=== PATIENT | female | born 1970 | race African-American/Black ===

== ENCOUNTER 2016-08-18 16:11 | Emergency (ER) | payer MEDICAID ==
[~2016-08-18] VITALS: Ht 167.6 cm; Wt 53.5 kg
[2016-08-18] MEDS ORDERED: Cyclobenzaprine 10mg Tab ORAL ONE (17:00)
[2016-08-18] MEDS ORDERED: CYCLOBENZAPRINE10 MG ORAL (17:28)
[2016-08-18] MEDS ORDERED: IBUPROFEN600 MG ORAL (17:28)
[2016-08-18 17:39] VITALS: BP 123/87
--- NOTE | 2016-08-18 21:53 | Emergency Room Report ---
History of Present Illness General Chief Complaint: Lower Extremity Injury Source: Patient Present Illness HPI The patient is a 46 year old female presenting with left hip pain which began 2 days prior for no known reason. The patient describes the pain as a 9/10 dull ache to the back of the left hip. Pain radiates inferiorly to the knee. The patient denies any numbness or tingling and denies any prior injury to the hip. The patient denies any other symptoms including nausea, vomiting, fever, chills , Shortness of breath, cough Allergies: Coded Allergies: No Known Allergies (Unverified , 08/18/16) Patient History Past Medical History: see triage record Pertinent Family History: none Last Menstrual Period: AUG 05, 2016 Now: No : 7 Para: 3 Reviewed Nursing Documentation: PMH: Agreed, PSxH: Agreed Nursing Documentation-PMH Hx Hypertension: Yes Review of Systems All Other Systems: negative except mentioned in HPI Physical Exam Vital Signs Date Time Temp Pulse Resp B/P Pulse Ox O2 Delivery O2 Flow Rate FiO2 08/18/16 16:39 98.2 79 14 110/79 99 Room Air Sp02 EP Interpretation: reviewed, normal General Appearance: no apparent distress, alert, GCS 15, non-toxic Head: normocephalic, atraumatic Eyes: bilateral eye PERRL, bilateral eye normal inspection ENT: hearing grossly normal, normal pharynx, no angioedema, normal voice Neck: full range of motion, supple/symm/no masses Musculoskeletal: normal range of motion, no calf tenderness, pelvis stable, other - ambulating with antalgic gait, tender - TTP over posterior L hip/buttock Neurologic: alert, oriented x3, responsive, motor strength/tone normal, sensory intact, speech normal Psychiatric: judgement/insight normal, memory normal, mood/affect normal, no suicidal/homicidal ideation Reflexes: 3+ bicep (R), 3+ bicep (L), 3+ tricep (R), 3+ tricep (L), 3+ knee (R) , 3+ knee (L) Skin: normal color, no rash, warm/dry, well hydrated Lymphatic: no adenopathy Medical Decision Making PA Attestation Dr. Sykes is my supervising physician. Patient management was discussed with my supervising physician Diagnostic Impression: Primary Impression: Hamstring muscle strain ER Course The patient is a 46-year-old female presenting with left hip pain Ddx considered include but not limited to sprain/strain, fracture, contusion, doubt, septic joint Physical exam: Vitals within normal limits. No apparent distress. Left hip: Limited range of motion due to pain. Tenderness to palpation over the left posterior hip and buttock. No obvious deformity. Sensation intact to light-touch. Antalgic gait. Skin warm and dry. No discoloration X-ray of the left hip is unremarkable The patient is given Motrin and Flexeril for pain The patient will be treated for muscular strain with a prescription for Motrin and Flexeril. Patient given ER precautions and will followup with primary care physician Other X-Ray Diagnostic Results Other X-Ray Diagnostic Results : X-Ray Ordered: L hip Date: Aug 18, 2016 EP Interpretation: Yes Findings: no fractures, no dislocation, no soft tissue swelling Number of Views: 2 PA Scribe Text I am acting as scribe for my supervising physician. My supervising physician's interpretation of the L hip xrays are there are no fractures, dislocations or soft tissue swelling. Last Vital Signs Date Time Temp Pulse Resp B/P Pulse Ox O2 Delivery O2 Flow Rate FiO2 08/18/16 17:40 98.3 08/18/16 17:39 76 14 123/87 99 Room Air Status: improved Disposition: HOME, SELF-CARE Condition: Improved Scripts Cyclobenzaprine Hcl* (FLEXERIL*) 10 Mg Tablet 10 MG ORAL THREE TIMES A DAY, #15 TAB Prov: IVONNE LOVE.ACamila 08/18/16 Ibuprofen* (MOTRIN*) 600 Mg Tablet 600 MG ORAL Q8H Y for For Pain, #30 TAB 0 Refills Prov: IVONNE LOVE P.A. 08/18/16 Referrals: [facility] (PCP) Patient Instructions: Hamstring Strain Additional Instructions: I discussed my findings with the patient. All questions and concerns have been answered. Treatment and medication compliance have been addressed. I advised the patient that they need to follow up with PMD in 3-5 days. Return to ED if pain remains or worsens, numbness or tingling occurs, new rash is noticed, fever is noticed, or if needed for any reason. Patient verbalized understanding of discharge instructions. IVONNE LOVE Aug 18, 2016 21:53
--- NOTE | 2016-08-19 12:57 | Diagnostic Imaging Report ---
Indications: Left hip pain Technique: Two views left hip Findings: Comparison: None. No fracture, dislocation, lytic destruction, periosteal reaction, surrounding soft tissue swelling, or other acute changes are demonstrated. Suggestion of degenerative change in lower lumbar spine. Sclerosis on either side of the pubic symphysis. No deformity, alignment abnormality, additional arthritic change, soft tissue calcification, or other chronic changes are demonstrated. IMPRESSION: No evidence of left hip abnormality Suggestion of degenerative spondylosis Osteitis pubis
== END 2016-08-18 17:39 | disposition home or self-care (01) ==
LOC: EMR 16:55
DX: S76.812A Strain of other specified muscles, fascia and tendons at thigh level, left thigh, initial encounter (principal); M86.9 Osteomyelitis, unspecified; I10 Essential (primary) hypertension; X58.XXXA Exposure to other specified factors, initial encounter; Y93.9 Activity, unspecified; Y92.9 Unspecified place or not applicable
CPT/HCPCS: 73502; 99284

== ENCOUNTER 2018-06-21 13:09 | Inpatient (IN) | payer MEDICAID ==
[~2018-06-21] VITALS: Ht 170.2 cm; Wt 52.2 kg
[2018-06-21 13:08] VITALS: BP 155/110
[~2018-06-21 13:09] MED LIST: Albuterol ud Inhalation ONE; CYCLOBENZAPRINE10 MG ORAL; IBUPROFEN600 MG ORAL; Ipratropium 0.02% Inh Soln 2.5ml UD ONE
[2018-06-21] MEDS ORDERED: Albuterol ud Inhalation HHN ONE (13:15)
[2018-06-21] MEDS ORDERED: Solu-MEDROL 125mg Inj IVP ONE (13:15)
[2018-06-21] MEDS ORDERED: Ipratropium 0.02% Inh Soln 2.5ml UD HHN ONE (13:15)
[2018-06-21] MEDS ORDERED: Solu-MEDROL 125mg Inj ONE (13:17)
[2018-06-21] MEDS ORDERED: Albuterol ud Inhalation ONE (13:24)
[2018-06-21] MEDS ORDERED: TAPAZOLE5 M1 PO (13:39)
[2018-06-21] MEDS ORDERED: ALBUTEROL2.5 MG/3 M INH (13:39)
[2018-06-21] MEDS ORDERED: GABAPENTIN100 MG ORAL (13:39)
[2018-06-21] MEDS ORDERED: AMLODIPINE BESYL5 MG ORAL (13:39)
[2018-06-21 13:52] LABS: APPEARANCE,URINE CLOUDY; BILIRUBIN, URINE NEGATIVE (NEGATIVE); GLUCOSE, URINE (UA) NEGATIVE (NEGATIVE); KETONES,URINE NEGATIVE (NEGATIVE); LEUKOCYTE ESTERASE ,URINE NEGATIVE (NEGATIVE); NITRITE,URINE NEGATIVE (NEGATIVE); PH,URINE 6 (4.5-8.0); PROTEIN,URINE 3+ (NEGATIVE); UROBILINOGEN,URINE 1 MG/DL (0.0-1.0)
[2018-06-21 13:54] LABS: COLOR,URINE YELLOW
[2018-06-21 13:57] LABS: BASOPHILS % (AUTO) 1.8 % (0.0-2.0); EOSINOPHILS % (AUTO) 10.5 % (0.0-3.0); HEMATOCRIT 45.4 % (37.0-47.0); HEMOGLOBIN 15.4 G/DL (12.0-16.0); LYMPHOCYTES % (AUTO) 47.3 % (20.0-45.0); MEAN CORPUSCULAR VOLUME 91 FL (80-99); MONOCYTES % (AUTO) 8.7 % (1.0-10.0); NEUTROPHILS % (AUTO) 31.7 % (45.0-75.0); PLATELET COUNT 224 K/UL (150-450); RED CELL DISTRIBUTION WIDTH 12.9 % (11.6-14.8); WHITE BLOOD COUNT 6.9 K/UL (4.8-10.8)
[2018-06-21 14:06] LABS: ANION GAP 9 mmol/L (5-15); BLOOD UREA NITROGEN 13 mg/dL (7-18); CALCIUM 8.6 MG/DL (8.5-10.1); CARBON DIOXIDE 28 MMOL/L (21-32); CHLORIDE 108 MMOL/L (98-107); CREATININE 0.9 MG/DL (0.55-1.30); POTASSIUM 3.5 MMOL/L (3.5-5.1); SODIUM 145 MMOL/L (136-145)
[2018-06-21 14:11] LABS: ALANINE AMINOTRANSFERASE 23 U/L (12-78); ALBUMIN 3.6 G/DL (3.4-5.0); ALBUMIN/GLOBULIN RATIO 0.9 (1.0-2.7); ALKALINE PHOSPHATASE 89 U/L (46-116); ASPARTATE AMINO TRANSFERASE 20 U/L (15-37); BILIRUBIN,TOTAL 0.6 MG/DL (0.2-1.0)
[2018-06-21 14:23] VITALS: BP 127/92
--- NOTE | 2018-06-21 14:40 | Diagnostic Imaging Report ---
Indication: Shortness of breath, cough Technique: One view of the chest Comparison: none Findings: Lungs and pleural spaces are clear. Heart size is normal Impression: No acute process
[2018-06-21 15:25] VITALS: BP 143/93
--- NOTE | 2018-06-21 15:49 | Emergency Room Report ---
History of Present Illness General Chief Complaint: Dyspnea/Respdistress Source: Patient, EMS Present Illness HPI This patient is brought in with respiratory distress. The patient is brought in by EMS. Per report, the patient has had shortness of breath starting this morning about an hour prior to arrival. The patient has a history of COPD. EMS reports that pulse ox was in the high 80s on their arrival. They did give albuterol and place the patient on oxygen and her SPO2 increased to the mid- 90s. However, the patient remained tachypneic and having dyspnea. The patient states she cannot breathe. She denies recent illness. She denies fever or chills. She has no other complaints. Allergies: Coded Allergies: No Known Allergies (Unverified , 08/18/16) Patient History Past Medical History: see triage record, HTN, asthma, COPD Social History: Reports: smoking, drug use; Denies: alcohol use Last Menstrual Period: na Reviewed Nursing Documentation: PMH: Agreed; PSxH: Agreed Nursing Documentation-PMH Past Medical History: No History, Except For Hx Hypertension: Yes Hx Asthma: Yes Review of Systems All Other Systems: negative except mentioned in HPI Physical Exam Vital Signs Date Time Temp Pulse Resp B/P (MAP) Pulse Ox O2 Delivery O2 Flow Rate FiO2 06/21/18 12:53 118 28 155/110 90 Simple Mask 10.0 06/21/18 13:00 40 06/21/18 13:08 98.4 Sp02 EP Interpretation: reviewed, normal General Appearance: alert, GCS 15, non-toxic, moderate distress, other - tachypnea, tripoding. Head: normocephalic, atraumatic Eyes: bilateral eye normal inspection, bilateral eye PERRL ENT: hearing grossly normal, normal pharynx, no angioedema, normal voice Neck: full range of motion, supple/symm/no masses Respiratory: chest non-tender, respiratory distress, wheezing, expiration Cardiovascular #1: no edema, tachycardia Gastrointestinal: normal bowel sounds, non tender, soft, non-distended, no guarding, no rebound Rectal: deferred Musculoskeletal: back normal, gait/station normal, normal range of motion, non- tender Neurologic: alert, oriented x3, responsive, motor strength/tone normal, sensory intact, speech normal Psychiatric: judgement/insight normal, memory normal, mood/affect normal, no suicidal/homicidal ideation Skin: normal color, no rash, warm/dry, well hydrated Medical Decision Making Diagnostic Impression: Primary Impression: COPD exacerbation ER Course Patient presented in respiratory distress. She was tachypneic and tripoding with low oxygen saturations. She was given emergency albuterol, Atrovent and Solu-Medrol IV. She was placed on oxygen and a monitor. She continued to have tachypnea dyspnea and respiratory distress, so she was placed on BiPAP. During the patient's ED course she had improvement in her work of breathing and dyspnea. Her lung exam improved significantly and she was able to be titrated off the BiPAP to nasal cannula. At the time of admission, the patient was comfortable with a clear lung exam and on 2 L of nasal cannula satting 97%. Patient had a significant turnaround and was eating a meal. I felt she should still be admitted given the severity of her presentation. She is admitted to telemetry floor. This patient is critically ill. This patient required complex medical decision- making, aggressive intervention, extensive laboratory workup and monitoring. Critical care time: 40 minutes. Laboratory Tests Test 06/21/18 13:15 White Blood Count 6.9 K/UL (4.8-10.8) Red Blood Count 5.00 M/UL (4.20-5.40) Hemoglobin 15.4 G/DL (12.0-16.0) Hematocrit 45.4 % (37.0-47.0) Mean Corpuscular Volume 91 FL (80-99) Mean Corpuscular Hemoglobin 30.9 PG (27.0-31.0) Mean Corpuscular Hemoglobin Concent 34.0 G/DL (32.0-36.0) Red Cell Distribution Width 12.9 % (11.6-14.8) Platelet Count 224 K/UL (150-450) Mean Platelet Volume 5.7 FL (6.5-10.1) L Neutrophils (%) (Auto) 31.7 % (45.0-75.0) L Lymphocytes (%) (Auto) 47.3 % (20.0-45.0) H Monocytes (%) (Auto) 8.7 % (1.0-10.0) Eosinophils (%) (Auto) 10.5 % (0.0-3.0) H Basophils (%) (Auto) 1.8 % (0.0-2.0) Urine Color Yellow Urine Appearance Cloudy Urine pH 6 (4.5-8.0) Urine Specific [place] 1.020 (1.005-1.035) Urine Protein 3+ (NEGATIVE) H Urine Glucose (UA) Negative (NEGATIVE) Urine Ketones Negative (NEGATIVE) Urine Blood 1+ (NEGATIVE) H Urine Nitrite Negative (NEGATIVE) Urine Bilirubin Negative (NEGATIVE) Urine Urobilinogen 1 MG/DL (0.0-1.0) H Urine Leukocyte Esterase Negative (NEGATIVE) Urine RBC 2-4 /HPF (0 - 2) H Urine WBC 0-2 /HPF (0 - 2) Urine Squamous Epithelial Cells Moderate /LPF (NONE/OCC) H Urine Bacteria Few /HPF (NONE) Sodium Level 145 MMOL/L (136-145) Potassium Level 3.5 MMOL/L (3.5-5.1) Chloride Level 108 MMOL/L (98-107) H Carbon Dioxide Level 28 MMOL/L (21-32) Anion Gap 9 mmol/L (5-15) Blood Urea Nitrogen 13 mg/dL (7-18) Creatinine 0.9 MG/DL (0.55-1.30) Estimate Glomerular Filtration Rate > 60 mL/min (>60) Glucose Level 122 MG/DL (74-106) H Calcium Level 8.6 MG/DL (8.5-10.1) Total Bilirubin 0.6 MG/DL (0.2-1.0) Aspartate Amino Transferase (AST) 20 U/L (15-37) Alanine Aminotransferase (ALT) 23 U/L (12-78) Alkaline Phosphatase 89 U/L (46-116) Troponin I 0.017 ng/mL (0.000-0.056) Total Protein 7.8 G/DL (6.4-8.2) Albumin 3.6 G/DL (3.4-5.0) Globulin 4.2 g/dL Albumin/Globulin Ratio 0.9 (1.0-2.7) L Microbiology Date/Time Source Procedure Growth Status 06/21/18 13:45 Nasal Nares Influenza Types A,B Antigen (RENATO) - Final Complete EKG Diagnostic Results Rate: tachycardiac Rhythm: other - s.tachycardia ST Segments: no acute changes Rhythm Strip Diag. Results EP Interpretation: yes Rate: 110's Rhythm: no PVC's, no ectopy, other - S.tachycardia Chest X-Ray Diagnostic Results Chest X-Ray Diagnostic Results : Chest X-Ray Ordered: Yes # of Views/Limited/Complete: 1 View Indication: Shortness of Breath EP Interpretation: No Interpretation: no consolidation, no effusion, no pneumothorax, no acute cardiopulmonary disease Impression: No acute disease Electronically Signed by: Vicky Sykes DO Last Vital Signs Date Time Temp Pulse Resp B/P (MAP) Pulse Ox O2 Delivery O2 Flow Rate FiO2 06/21/18 15:25 98.4 107 18 143/93 100 Nasal Cannula 2.0 06/21/18 13:00 40 Disposition: ADMITTED INPATIENT Condition: Serious Referrals: [facility] (PCP) Vicky Sykes DO Jun 21, 2018 15:49
[2018-06-21 17:13] VITALS: BP 134/98
[2018-06-21] MEDS ORDERED: METHIMAZOLE10 MG PO (17:49)
[2018-06-21] MEDS ORDERED: ATROVENT HFA12.9 GM IH (17:49)
[2018-06-21] MEDS: Albuterol/Ipratropium 3ml neb HHN SCH (21:36)
[2018-06-21 21:37] VITALS: BP 151/110
[2018-06-21] MEDS: Solu-MEDROL 40mg Inj IVP SCH (22:23)
[2018-06-21] MEDS ORDERED: Zolpidem 5mg tab ORAL PRN (23:15)
[2018-06-21] MEDS ORDERED: HydrALAZINE 25mg tab ORAL PRN (23:15)
[2018-06-21 23:18] VITALS: BP 147/94
[2018-06-21] MEDS ORDERED: Azithromycin 250mg tab ORAL SCH (23:30)
--- NOTE | 2018-06-22 00:30 | History and Physical Report ---
DATE OF ADMISSION: 06/21/2018 REASON FOR ADMISSION: Chronic obstructive pulmonary disease with acute exacerbation. HISTORY OF PRESENT ILLNESS: This is a 48-year-old female with a known history of chronic bronchitis and chronic obstructive pulmonary disease for which she was last hospitalized in 05/2018. She has never been intubated. She has been on oral steroids periodically. She has been a smoker, but quit over two months ago. The patient notes that she developed shortness of breath this morning, increasing cough and congestion over the past few days, and inadequate response to her usual nebulizer therapy. She was hypoxic in the emergency room and improved with treatment of an inhaled bronchodilator an oxygen supplementation. She felt that she was short of breath however and remains somewhat tachypneic prompting hospitalization. She has not had fever, chills, or sputum production with her cough and she did receive an influenza vaccination this year. SOCIAL HISTORY: She uses marijuana periodically. She quit smoking two months ago. She denies any drug use or alcohol abuse. ALLERGIES: None. MEDICATIONS: Reviewed and reconciled. Presently not on steroids. FAMILY HISTORY: Noncontributory. PAST MEDICAL HISTORY: Otherwise notable for hypertension. REVIEW OF SYSTEMS: A 10-point review of systems performed. All systems negative other than noted above. PHYSICAL EXAMINATION: VITAL SIGNS: In the emergency room, the patient was noted to have a blood pressure of 143/93, heart rate 107, respiratory rate 18, and was afebrile. 100% oxygen saturation on two liters nasal cannula. HEENT: Conjunctivae pink. Oropharynx clear. Mucous membranes moist. NECK: Supple. Some accessory muscle use. No bruits. LUNGS: With coarse breath sounds, rhonchi, and few expiratory wheezes. CARDIAC: Regular rhythm. Rapid rate. Normal S1, S2 with no murmur, rub, or gallop. ABDOMEN: Soft, nontender. No bruits. EXTREMITIES: Good pulses. No clubbing or cyanosis. No calf tenderness. No edema. LABORATORY AND DIAGNOSTIC DATA: Chest x-ray revealed no acute process. White count 6.9, hemoglobin 15. Chemistry panel within normal limits. Glucose 122. Troponin negative. IMPRESSION: 1. Acute bronchitis. 2. Paroxysmal bronchospasm. 3. Chronic obstructive pulmonary disease with acute exacerbation. 4. Hypoxia. 5. Hypertensive heart disease with labile blood pressure due to acute respiratory condition. PLAN: 1. Intravenous steroids. 2. Inhaled bronchodilators. 3. Empiric antimicrobials. 4. Titrate antihypertensives. 5. Mobilize to avoid DVT risk. 6. Encourage continued efforts to avoid resumption of smoking. Rayray Pat M.D. DR: JONO JOB#: [id number] CC:
[2018-06-22] MEDS: Albuterol/Ipratropium 3ml neb HHN SCH ×5 (01:18→20:40)
[2018-06-22 04:00] VITALS: BP 147/97
[2018-06-22 04:55] LABS: HEMATOCRIT 38.9 % (37.0-47.0); HEMOGLOBIN 13.1 G/DL (12.0-16.0); MEAN CORPUSCULAR VOLUME 92 FL (80-99); PLATELET COUNT 228 K/UL (150-450); RED BLOOD COUNT 4.24 M/UL (4.20-5.40); RED CELL DISTRIBUTION WIDTH 13.3 % (11.6-14.8); WHITE BLOOD COUNT 6.9 K/UL (4.8-10.8)
[2018-06-22 05:25] LABS: ANION GAP 10 mmol/L (5-15); BLOOD UREA NITROGEN 18 mg/dL (7-18); CALCIUM 8.9 MG/DL (8.5-10.1); CARBON DIOXIDE 23 MMOL/L (21-32); CHLORIDE 105 MMOL/L (98-107); CREATININE 0.9 MG/DL (0.55-1.30); POTASSIUM 3.8 MMOL/L (3.5-5.1); SODIUM 138 MMOL/L (136-145)
[2018-06-22 05:39] LABS: ALANINE AMINOTRANSFERASE 22 U/L (12-78); ALBUMIN 3.2 G/DL (3.4-5.0); ALBUMIN/GLOBULIN RATIO 0.8 (1.0-2.7); ALKALINE PHOSPHATASE 71 U/L (46-116); ASPARTATE AMINO TRANSFERASE 20 U/L (15-37); BILIRUBIN,TOTAL 0.4 MG/DL (0.2-1.0)
[2018-06-22] MEDS: Solu-MEDROL 40mg Inj IVP SCH ×3 (05:53→21:12)
[2018-06-22 08:00] VITALS: BP 113/94
[2018-06-22 12:00] VITALS: BP 140/87
[2018-06-22 14:43] VITALS: BP 146/108
--- NOTE | 2018-06-22 16:02 | Cardiology Report ---
APPROVED REPORT EKG Measurement Heart [id number] ME [id number] Sinus tachycardia Possible Left atrial enlargement Nonspecific ST and T wave abnormality Abnormal ECG
[2018-06-22 16:18] VITALS: BP 155/118
--- NOTE | 2018-06-22 17:15 | Consultation ---
DATE OF CONSULTATION: 06/22/2018 HISTORY OF PRESENT ILLNESS: This is a 48-year-old female with a history of COPD. She states she was diagnosed a few years ago. She states she normally gets her care at [facility]. The patient has been complaining of shortness of breath. This worsened over the last few days. She reported cough and congestion. She denied fever. She was seen and worked up in the emergency room. She underwent imaging studies. X-ray of the chest was obtained, which showed clear bilaterally. The patient also had laboratory testing done which showed normal CBC and BMP. Glucose is 133. The patient was admitted to the hospital for further management and care. PAST HISTORY: 1. Chronic tobacco use, quit recently. 2. COPD. MEDICATIONS: Home medications including medications at this point in time include Norvasc, Pepcid, erythromycin, Ambien, hydralazine, Solu-Medrol, Neurontin, and albuterol. ALLERGIES: None reported. SURGERIES: None reported. PHYSICAL EXAMINATION: GENERAL: Reveals a 48-year-old female. VITAL SIGNS: O2 saturation 99% on 2 L of oxygen, heart rate 84, respiratory rate 26, afebrile, blood pressure 113/94. HEENT: Unremarkable. CHEST: Clear breath sounds bilaterally. HEART: Normal heart sounds. ABDOMEN: Soft. NEUROLOGIC: Nonfocal. IMPRESSION: 1. Exacerbation of COPD 2. Ex-smoker. 3. Marijuana use. 4. . DISCUSSION: 1. Agree with admission and care. Presently, she is doing well with Solu-Medrol, antibiotics, HHN, and oxygen. 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 No further recommendations at this point and time. Calvin Ignacio M.D. DR: Luis Eduardo JOB#: [id number] CC:
[2018-06-22] MEDS ORDERED: HydrALAZINE 25mg tab ORAL PRN (18:00)
[2018-06-22 20:00] VITALS: BP 142/95
[2018-06-22] MEDS ORDERED: Zolpidem 5mg tab ORAL PRN (20:00)
[2018-06-22] MEDS ORDERED: Azithromycin 250mg tab ORAL SCH (21:00)
[2018-06-23] VITALS: BP 149/102
--- NOTE | 2018-06-23 01:15 | Progress Note ---
INTERNAL MEDICINE PROGRESS NOTE DATE: 06/22/2018 SUBJECTIVE: The patient is still congested and short of breath, but somewhat improved from admission last night. She still has some sputum production and cough with wheezing. OBJECTIVE: VITAL SIGNS: Blood pressure 147/95, pulse 88, and respirations 19. LUNGS: Diminished breath sounds. Scattered expiratory wheezes. HEART: Regular rhythm and rate. Normal S1, S2. Positive fourth heart sound. ABDOMEN: Soft. EXTREMITIES: No edema. IMPRESSION: 1. Chronic obstructive pulmonary disease exacerbation. 2. Acute bronchospasm. 3. Acute bronchitis. 4. Hypertensive heart disease with labile blood pressure. PLAN: 1. Empiric antibiotics. 2. Inhaled bronchodilators. 3. Discontinue telemetry. 4. Steroid taper. 5. Advance antihypertensives. 6. Monitor volume status. 7. DVT prophylaxis if not mobilizing adequately. Rayray Pat M.D. DR: MABLE JOB#: [id number] CC:
[2018-06-23] MEDS: Albuterol/Ipratropium 3ml neb HHN SCH ×4 (01:51→19:12)
[2018-06-23 04:00] VITALS: BP 145/92
[2018-06-23 08:00] VITALS: BP 134/93
[2018-06-23] MEDS: Solu-MEDROL 40mg Inj IVP SCH ×2 (09:27→21:17)
--- NOTE | 2018-06-23 09:35 | Pulmonology Progress Note ---
Assessment/Plan Assessment/Plan IMPRESSION: 1. Exacerbation of COPD 2. Ex-smoker. 3. Marijuana use. DISCUSSION: Agree with admission and care. Presently, she is doing well with Solu-Medrol, antibiotics, HHN, and oxygen. 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 No further recommendations at this point and time. Suggest DC planning on PO steroids and abx Subjective Interval Events: None new Constitutional: Reports: no symptoms HEENT: Repors: no symptoms Respiratory: Reports: no symptoms Cardiovascular: Reports: no symptoms Gastrointestinal/Abdominal: Reports: no symptoms Genitourinary: Reports: no symptoms Allergies: Coded Allergies: No Known Allergies (Unverified , 08/18/16) Objective Last 24 Hour Vital Signs Date Time Temp Pulse Resp B/P (MAP) Pulse Ox O2 Delivery O2 Flow Rate FiO2 06/23/18 09:26 80 134/93 06/23/18 08:29 79 18 98 Nasal Cannula 2.0 28 06/23/18 08:21 77 18 95 Room Air 21 06/23/18 08:21 95 Nasal Cannula 2.0 28 06/23/18 08:21 Nasal Cannula 2.0 28 06/23/18 04:00 98.7 68 19 145/92 (109) 99 06/23/18 02:02 76 18 98 Nasal Cannula 2.0 28 06/23/18 01:51 97 20 97 Room Air 21 06/23/18 00:00 98.7 70 19 149/102 (118) 99 06/22/18 21:00 Room Air 06/22/18 20:51 77 18 98 Nasal Cannula 2.0 28 06/22/18 20:41 88 20 96 Room Air 21 06/22/18 20:41 96 Room Air 21 06/22/18 20:41 Room Air 21 06/22/18 20:00 98.7 88 19 142/95 (111) 99 06/22/18 16:18 98.7 98 19 155/118 (130) 99 06/22/18 15:07 89 20 99 Nasal Cannula 2.0 28 06/22/18 14:57 88 20 97 Nasal Cannula 2.0 28 06/22/18 14:43 96.3 92 20 146/108 (121) 94 06/22/18 12:00 98.1 84 21 140/87 (104) 98 06/22/18 12:00 73 Intake and Output 06/22/18 06/23/18 18:59 06:59 Intake Total 740 ml 120 ml Balance 740 ml 120 ml Intake Oral 740 ml 120 ml # Voids 5 General Appearance: no acute distress HEENT: normocephalic Respiratory/Chest: chest wall non-tender, lungs clear Cardiovascular: normal peripheral pulses, normal rate Abdomen: normal bowel sounds Microbiology Date/Time Source Procedure Growth Status 06/21/18 13:15 Blood Blood Culture - Preliminary Resulted 06/21/18 13:15 Blood Blood Culture - Preliminary Resulted 06/21/18 13:45 Nasal Nares Influenza Types A,B Antigen (RENATO) - Final Complete Current Medications Medications (Trade) Dose Ordered Sig/Magali Route PRN Reason Start Time Stop Time Status Last Admin Dose Admin Acetaminophen (Tylenol) 650 mg Q6H PRN ORAL Mild Pain/Temp > 100.5 06/22/18 14:00 07/21/18 13:59 Albuterol/ Ipratropium (Albuterol/ Ipratropium) 3 ml Q6HRT HHN 06/22/18 14:00 06/26/18 13:59 06/23/18 08:22 Amlodipine Besylate (Norvasc) 10 mg DAILY ORAL 06/23/18 09:00 07/23/18 08:59 06/23/18 09:26 Azithromycin (Zithromax) 500 mg QHS ORAL 06/22/18 21:00 06/28/18 23:29 06/22/18 21:12 Famotidine (Pepcid) 20 mg DAILY ORAL 06/23/18 09:00 07/22/18 08:59 06/23/18 09:27 Gabapentin (Neurontin) 100 mg EVERY 8 HOURS ORAL 06/22/18 14:00 07/21/18 21:59 06/23/18 05:48 Hydralazine HCl (Apresoline) 25 mg Q6H PRN ORAL BP above 160/95 06/22/18 18:00 07/22/18 17:59 Methylprednisolone Sodium Succinate (Solu-MEDROL) 40 mg EVERY 12 HOURS IVP 06/23/18 09:00 07/23/18 08:59 06/23/18 09:27 Zolpidem Tartrate (Ambien) 5 mg HSPRN PRN ORAL Insomnia 06/22/18 20:00 06/28/18 19:59 Calvin Ignacio MD Jun 23, 2018 09:35
[2018-06-23 12:00] VITALS: BP 148/100
[2018-06-23] MEDS ORDERED: Vancomycin 1250mg/D5W 250ml IVPB SCH (12:00)
[2018-06-23 16:00] VITALS: BP 143/95
--- NOTE | 2018-06-23 18:30 | Consultation ---
DATE OF CONSULTATION: 06/23/2018 INFECTIOUS DISEASES CONSULTATION CONSULTING PHYSICIAN: Edith Black M.D. REFERRING PHYSICIAN: Rayray Pat M.D. REASON FOR CONSULTATION: Sepsis. HISTORY OF PRESENTING ILLNESS: This is a 48-year-old lady with history of COPD, chronic bronchitis, asthma, hypertension, hyperthyroidism, who came in with increasing shortness of breath along with cough and congestion. She was hypoxic in the emergency room. She was found to have bacteremia and an Infectious Diseases consultation has been obtained for antibiotics. PAST MEDICAL HISTORY: 1. History of hypertension. 2. COPD. 3. Bronchitis. 4. Asthma. 5. Hyperthyroidism. SOCIAL HISTORY: She used to be a smoker. She quit smoking. She has smoked 2 cigars recently. She drinks alcohol. She smokes marijuana. FAMILY HISTORY: Positive for prostate cancer, colon cancer, and throat cancer in her grandfather. REVIEW OF SYSTEMS: GENERAL: No fever or chills. RESPIRATORY: She did have cough. She has shortness of breath. No chest pain. CARDIAC: No chest pain. No palpitations. No dizziness. No syncope. GASTROINTESTINAL: No nausea. No vomiting. No abdominal pain or diarrhea. MEDICATIONS: As an inpatient, she is on vancomycin, famotidine, amlodipine, Solu-Medrol, azithromycin, Ambien, hydralazine, Tylenol, albuterol, ipratropium, gabapentin. ALLERGIES: No known drug allergies. PHYSICAL EXAMINATION: VITAL SIGNS: Temperature of 97.2, T-max of 98.7 degrees, pulse of 80, respiratory rate of 18, blood pressure 134/93, O2 saturation of 98%. HEENT: Pupils equally reactive to light and accommodation. Mouth appears clean without thrush. NECK: Supple. No adenopathy. No JVD. CARDIOVASCULAR: Regular rate and rhythm. No murmurs. LUNGS: Clear to auscultation bilaterally. No crackles. No wheezes. ABDOMEN: Soft and nontender. No organomegaly. EXTREMITIES: No cyanosis, no clubbing, no edema. LABORATORY AND DIAGNOSTIC DATA: White count 6.9, hemoglobin 13.1, hematocrit 38.9, MCV 92, platelet count of 228. Sodium 138, potassium 3.8, chloride 105, bicarb 23, BUN 18, creatinine 0.9, glucose 133, calcium 8.9, total bilirubin 0.4. AST 20, ALT 22, alkaline phosphatase 71. Beta-natriuretic peptide 346. Total protein 7.1. Albumin 3.2. UA is showing 0 to 2 white cells. Blood cultures showing gram-positive cocci in clusters. On 06/21/2018, nasal swab was negative for influenza A and B. Chest x-ray is showing no acute process. ASSESSMENT: This is a 48-year-old lady with history of hypertension, COPD, asthma, hyperthyroidism, who comes in with cough and shortness of breath and is found to have: 1. Gram-positive sepsis. 2. Asthma exacerbation. 3. COPD. 4. Hypertension. PLAN: 1. Continue IV vancomycin. 2. Continue azithromycin for now. 3. We will follow up cultures and adjust antibiotics accordingly. I would like to thank Dr. Pat for this consultation. Edith Black M.D. DR: SANJAY JOB#: [id number] CC: Rayray Pat M.D.
[2018-06-23] MEDS ORDERED: Bisacodyl EC 5mg tab ORAL PRN (18:45)
[2018-06-23] MEDS ORDERED: Milk of Magnesia 30ml Ud ORAL SCH (20:00)
[2018-06-23] MEDS ORDERED: Lactobacillus-GG tablet ORAL SCH (20:00)
[2018-06-23] MEDS ORDERED: Docusate 250mg cap ORAL SCH (20:00)
[2018-06-23 20:22] VITALS: BP 132/92
[2018-06-23] MEDS ORDERED: Milk of Magnesia 30ml Ud ORAL PRN (21:00)
[2018-06-24 00:35] VITALS: BP 133/89
--- NOTE | 2018-06-24 00:45 | Progress Note ---
DATE: 06/23/2018 INTERNAL MEDICINE PROGRESS NOTE SUBJECTIVE: The patient had positive blood cultures for Gram-positive cocci. The patient has no fevers or chills. Her breathing has improved. OBJECTIVE: VITAL SIGNS: Blood pressure 143/95, pulse 82, and respiratory rate 20. LUNGS: Coarse breath sounds. Rhonchi. No wheezing. HEART: Regular rhythm and rate. Normal S1, S2. ABDOMEN: Soft. EXTREMITIES: No edema. LABORATORY DATA: No new labs today. IMPRESSION: 1. Chronic obstructive pulmonary disease exacerbation, improved. 2. Possible Gram-positive bacteremia and sepsis, unclear source. 3. Paroxysmal bronchospasm. 4. Hypertension with elevated blood pressure due to steroids. PLAN: 1. Vancomycin has been added. 2. Infectious Disease consultation is pending. 3. Repeat blood cultures. 4. An echocardiogram has been ordered. Rayray Pat M.D. DR: JONO JOB#: [id number] CC:
[2018-06-24] MEDS: Albuterol/Ipratropium 3ml neb HHN SCH ×4 (01:17→20:06)
[2018-06-24] MEDS: Azithromycin 500 MG in D5W 275 ML IV SCH (01:17)
[2018-06-24 04:49] VITALS: BP 122/86
[2018-06-24 06:36] LABS: HEMATOCRIT 40.8 % (37.0-47.0); HEMOGLOBIN 13.7 G/DL (12.0-16.0); MEAN CORPUSCULAR VOLUME 95 FL (80-99); PLATELET COUNT 246 K/UL (150-450); RED BLOOD COUNT 4.29 M/UL (4.20-5.40); RED CELL DISTRIBUTION WIDTH 13.8 % (11.6-14.8)
[2018-06-24 07:17] LABS: ALANINE AMINOTRANSFERASE 36 U/L (12-78); ALBUMIN 3.3 G/DL (3.4-5.0); ALBUMIN/GLOBULIN RATIO 0.8 (1.0-2.7); ALKALINE PHOSPHATASE 71 U/L (46-116); ANION GAP 7 mmol/L (5-15); ASPARTATE AMINO TRANSFERASE 22 U/L (15-37); BILIRUBIN,TOTAL 0.3 MG/DL (0.2-1.0); BLOOD UREA NITROGEN 13 mg/dL (7-18); CALCIUM 8.9 MG/DL (8.5-10.1); CARBON DIOXIDE 28 MMOL/L (21-32); CHLORIDE 104 MMOL/L (98-107); CREATININE 0.6 MG/DL (0.55-1.30); POTASSIUM 4.4 MMOL/L (3.5-5.1); SODIUM 139 MMOL/L (136-145)
[2018-06-24] MEDS: Docusate 250mg cap ORAL SCH (08:16)
[2018-06-24] MEDS: Solu-MEDROL 40mg Inj IVP SCH ×2 (08:17→21:47)
[2018-06-24] MEDS: Lactobacillus-GG tablet ORAL SCH ×3 (08:17→17:18)
[2018-06-24 08:30] VITALS: BP 125/86
--- NOTE | 2018-06-24 10:25 | Pulmonology Progress Note ---
Assessment/Plan Assessment/Plan IMPRESSION: 1. Exacerbation of COPD 2. Ex-smoker. 3. Marijuana use. 4. Bacteremia DISCUSSION: Respiratory status stable. 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 No further recommendations at this point and time. Subjective Interval Events: Noted to be bacteremic; breathing comfortably Constitutional: Reports: no symptoms HEENT: Repors: no symptoms Respiratory: Reports: no symptoms Cardiovascular: Reports: no symptoms Gastrointestinal/Abdominal: Reports: no symptoms Genitourinary: Reports: no symptoms Neurologic: Reports: no symptoms Allergies: Coded Allergies: No Known Allergies (Unverified , 08/18/16) Objective Last 24 Hour Vital Signs Date Time Temp Pulse Resp B/P (MAP) Pulse Ox O2 Delivery O2 Flow Rate FiO2 06/24/18 08:17 78 130/79 06/24/18 07:18 86 16 100 Nasal Cannula 2.0 28 06/24/18 07:06 Nasal Cannula 2.0 28 06/24/18 07:06 83 20 95 Nasal Cannula 2.0 28 06/24/18 07:06 95 Nasal Cannula 2.0 28 06/24/18 04:49 97.6 74 18 122/86 (98) 97 06/24/18 01:28 64 12 100 Nasal Cannula 2.0 28 06/24/18 01:17 71 12 96 Nasal Cannula 2.0 28 06/24/18 01:17 28 06/24/18 00:35 97.7 67 18 133/89 (104) 96 06/23/18 22:23 Nasal Cannula 2.0 06/23/18 20:22 97.8 72 18 132/92 (105) 99 06/23/18 19:22 78 16 99 Nasal Cannula 2.0 28 06/23/18 19:12 96 Nasal Cannula 2.0 28 06/23/18 19:12 Nasal Cannula 2.0 28 06/23/18 19:12 28 06/23/18 19:12 74 16 96 Nasal Cannula 2.0 28 06/23/18 16:00 97.7 92 20 143/95 (111) 98 06/23/18 14:18 71 18 98 Nasal Cannula 2.0 28 06/23/18 14:08 72 16 96 Nasal Cannula 2.0 28 06/23/18 12:00 97.5 75 20 148/100 (116) 99 Intake and Output 06/23/18 06/24/18 19:00 07:00 Intake Total 1250.000 ml 755 ml Balance 1250.000 ml 755 ml Intake Oral 1000 ml 480 ml IV Total 250.000 ml 275 ml # Voids 5 5 General Appearance: no acute distress HEENT: normocephalic Respiratory/Chest: chest wall non-tender, lungs clear Cardiovascular: normal peripheral pulses, normal rate Abdomen: normal bowel sounds Microbiology Date/Time Source Procedure Growth Status 06/21/18 13:15 Blood Blood Culture - Preliminary Staphylococcus Aureus Resulted 06/21/18 13:15 Blood Blood Culture - Preliminary Staphylococcus Aureus Resulted 06/21/18 23:30 Nasal Nares MRSA Culture - Final NO METHICILLIN RESISTANT STAPH AUREUS... Complete 06/21/18 13:45 Nasal Nares Influenza Types A,B Antigen (RENATO) - Final Complete 06/21/18 23:30 Rectum - Final NO CARBAPENEM-RESISTANT ENTEROBACTERI... Complete 06/21/18 23:30 Rectum VRE Culture - Final NO VANCOMYCIN RESISTANT ENTEROCOCCUS ... Complete Laboratory Tests 06/24/18 04:45: White Blood Count 9.0, Red Blood Count 4.29, Hemoglobin 13.7, Hematocrit 40.8, Mean Corpuscular Volume 95, Mean Corpuscular Hemoglobin 31.9H, Mean Corpuscular Hemoglobin Concent 33.5, Red Cell Distribution Width 13.8, Platelet Count 246, Mean Platelet Volume 5.4L, Neutrophils (%) (Auto) , Lymphocytes (%) (Auto) , Monocytes (%) (Auto) , Eosinophils (%) (Auto) , Basophils (%) (Auto) , Differential Total Cells Counted 100, Neutrophils % (Manual) 84H, Lymphocytes % (Manual) 11L, Monocytes % (Manual) 5, Eosinophils % (Manual) 0, Basophils % ( Manual) 0, Band Neutrophils 0, Platelet Estimate Adequate, Platelet Morphology Normal, Anisocytosis 1+, Sodium Level 139, Potassium Level 4.4, Chloride Level 104, Carbon Dioxide Level 28, Anion Gap 7, Blood Urea Nitrogen 13, Creatinine 0.6, Estimat Glomerular Filtration Rate > 60, Glucose Level 108H, Calcium Level 8.9, Magnesium Level 2.1, Total Bilirubin 0.3, Aspartate Amino Transf (AST/SGOT ) 22, Alanine Aminotransferase (ALT/SGPT) 36, Alkaline Phosphatase 71, Pro-B- Type Natriuretic Peptide 324H, Total Protein 7.2, Albumin 3.3L, Globulin 3.9, Albumin/Globulin Ratio 0.8L Current Medications Medications (Trade) Dose Ordered Sig/Magali Route PRN Reason Start Time Stop Time Status Last Admin Dose Admin Acetaminophen (Tylenol) 650 mg Q6H PRN ORAL Mild Pain/Temp > 100.5 06/22/18 14:00 07/21/18 13:59 Albuterol/ Ipratropium (Albuterol/ Ipratropium) 3 ml Q6HRT HHN 06/22/18 14:00 06/26/18 13:59 06/24/18 07:06 Amlodipine Besylate (Norvasc) 10 mg DAILY ORAL 06/23/18 09:00 07/23/18 08:59 06/24/18 08:17 Azithromycin 500 mg/Dextrose 275 ml @ 275 mls/hr Q24HRS IV 06/24/18 01:00 06/30/18 01:59 06/24/18 01:17 Bisacodyl (Dulcolax) 5 mg DAILYPRN PRN ORAL Constipation 06/23/18 18:45 07/23/18 18:44 Docusate Sodium (Colace) 250 mg DAILY ORAL 06/24/18 09:00 07/24/18 08:59 06/24/18 08:16 Famotidine (Pepcid) 20 mg DAILY ORAL 06/23/18 09:00 07/22/18 08:59 06/24/18 08:15 Gabapentin (Neurontin) 100 mg EVERY 8 HOURS ORAL 06/22/18 14:00 07/21/18 21:59 06/24/18 05:25 Hydralazine HCl (Apresoline) 25 mg Q6H PRN ORAL BP above 160/95 06/22/18 18:00 07/22/18 17:59 Lactobacillus Acidophilus (Culturelle) 1 tab THREE TIMES A DAY ORAL 06/24/18 09:00 07/24/18 08:59 06/24/18 08:17 Magnesium Hydroxide (Mom) 30 ml HSPRN PRN ORAL Constipation 06/23/18 21:00 07/23/18 20:59 Methylprednisolone Sodium Succinate (Solu-MEDROL) 40 mg EVERY 12 HOURS IVP 06/23/18 09:00 07/23/18 08:59 06/24/18 08:17 Zolpidem Tartrate (Ambien) 5 mg HSPRN PRN ORAL Insomnia 06/22/18 20:00 06/28/18 19:59 Calvin Ignacio MD Jun 24, 2018 10:25
[2018-06-24 12:00] VITALS: BP 138/87
--- NOTE | 2018-06-24 14:05 | Infectious Diseases Prog Note ---
Assessment/Plan Assessment/Plan A 1. Staph aureus sepsis. 2. Asthma exacerbation. 3. COPD. 4. Hypertension. P; Continue IV Vancomycin & Zithromax will f/u echocardiogram Will f/u cultures Subjective ROS Limited/Unobtainable: No Constitutional: Reports: no symptoms Respiratory: Reports: no symptoms Cardiovascular: Reports: no symptoms Gastrointestinal/Abdominal: Reports: no symptoms Genitourinary: Reports: no symptoms Allergies: Coded Allergies: No Known Allergies (Unverified , 08/18/16) Objective Vital Signs Last 24 Hour Vital Signs Date Time Temp Pulse Resp B/P (MAP) Pulse Ox O2 Delivery O2 Flow Rate FiO2 06/24/18 13:05 85 16 100 Nasal Cannula 2.0 28 06/24/18 12:55 79 14 96 Nasal Cannula 2.0 28 06/24/18 12:00 97.7 72 21 138/87 (104) 99 06/24/18 08:30 97.5 84 16 125/86 (99) 97 06/24/18 08:30 Room Air 06/24/18 08:17 78 130/79 06/24/18 07:18 86 16 100 Nasal Cannula 2.0 28 06/24/18 07:06 Nasal Cannula 2.0 28 06/24/18 07:06 83 20 95 Nasal Cannula 2.0 28 06/24/18 07:06 95 Nasal Cannula 2.0 28 06/24/18 04:49 97.6 74 18 122/86 (98) 97 06/24/18 01:28 64 12 100 Nasal Cannula 2.0 28 06/24/18 01:17 71 12 96 Nasal Cannula 2.0 28 06/24/18 01:17 28 06/24/18 00:35 97.7 67 18 133/89 (104) 96 06/23/18 22:23 Nasal Cannula 2.0 06/23/18 20:22 97.8 72 18 132/92 (105) 99 06/23/18 19:22 78 16 99 Nasal Cannula 2.0 28 06/23/18 19:12 96 Nasal Cannula 2.0 28 06/23/18 19:12 Nasal Cannula 2.0 28 06/23/18 19:12 28 06/23/18 19:12 74 16 96 Nasal Cannula 2.0 28 06/23/18 16:00 97.7 92 20 143/95 (111) 98 06/23/18 14:18 71 18 98 Nasal Cannula 2.0 28 06/23/18 14:08 72 16 96 Nasal Cannula 2.0 28 Height (Feet): 5 Height (Inches): 7.00 Weight (Pounds): 115 General Appearance: no acute distress HEENT: mucous membranes moist Respiratory/Chest: lungs clear Cardiovascular: normal rate Abdomen: soft, non tender Extremities: no edema Neurologic/Psychiatric: alert, oriented x 3, responsive, normal mood/affect Microbiology Date/Time Source Procedure Growth Status 06/21/18 23:30 Nasal Nares MRSA Culture - Final NO METHICILLIN RESISTANT STAPH AUREUS... Complete 06/21/18 23:30 Rectum - Final NO CARBAPENEM-RESISTANT ENTEROBACTERI... Complete 06/21/18 23:30 Rectum VRE Culture - Final NO VANCOMYCIN RESISTANT ENTEROCOCCUS ... Complete Laboratory Tests Test 06/24/18 04:45 White Blood Count 9.0 K/UL (4.8-10.8) Red Blood Count 4.29 M/UL (4.20-5.40) Hemoglobin 13.7 G/DL (12.0-16.0) Hematocrit 40.8 % (37.0-47.0) Mean Corpuscular Volume 95 FL (80-99) Mean Corpuscular Hemoglobin 31.9 PG (27.0-31.0) H Mean Corpuscular Hemoglobin Concent 33.5 G/DL (32.0-36.0) Red Cell Distribution Width 13.8 % (11.6-14.8) Platelet Count 246 K/UL (150-450) Mean Platelet Volume 5.4 FL (6.5-10.1) L Neutrophils (%) (Auto) % (45.0-75.0) Lymphocytes (%) (Auto) % (20.0-45.0) Monocytes (%) (Auto) % (1.0-10.0) Eosinophils (%) (Auto) % (0.0-3.0) Basophils (%) (Auto) % (0.0-2.0) Differential Total Cells Counted 100 Neutrophils % (Manual) 84 % (45-75) H Lymphocytes % (Manual) 11 % (20-45) L Monocytes % (Manual) 5 % (1-10) Eosinophils % (Manual) 0 % (0-3) Basophils % (Manual) 0 % (0-2) Band Neutrophils 0 % (0-8) Platelet Estimate Adequate Platelet Morphology Normal Anisocytosis 1+ Sodium Level 139 MMOL/L (136-145) Potassium Level 4.4 MMOL/L (3.5-5.1) Chloride Level 104 MMOL/L (98-107) Carbon Dioxide Level 28 MMOL/L (21-32) Anion Gap 7 mmol/L (5-15) Blood Urea Nitrogen 13 mg/dL (7-18) Creatinine 0.6 MG/DL (0.55-1.30) Estimat Glomerular Filtration Rate > 60 mL/min (>60) Glucose Level 108 MG/DL (74-106) H Calcium Level 8.9 MG/DL (8.5-10.1) Magnesium Level 2.1 MG/DL (1.8-2.4) Total Bilirubin 0.3 MG/DL (0.2-1.0) Aspartate Amino Transf (AST/SGOT) 22 U/L (15-37) Alanine Aminotransferase (ALT/SGPT) 36 U/L (12-78) Alkaline Phosphatase 71 U/L (46-116) Pro-B-Type Natriuretic Peptide 324 pg/mL (0-125) H Total Protein 7.2 G/DL (6.4-8.2) Albumin 3.3 G/DL (3.4-5.0) L Globulin 3.9 g/dL Albumin/Globulin Ratio 0.8 (1.0-2.7) L Current Medications Medications (Trade) Dose Ordered Sig/Magali Route PRN Reason Start Time Stop Time Status Last Admin Dose Admin Acetaminophen (Tylenol) 650 mg Q6H PRN ORAL Mild Pain/Temp > 100.5 06/22/18 14:00 07/21/18 13:59 Albuterol/ Ipratropium (Albuterol/ Ipratropium) 3 ml Q6HRT HHN 06/22/18 14:00 06/26/18 13:59 06/24/18 12:55 Amlodipine Besylate (Norvasc) 10 mg DAILY ORAL 06/23/18 09:00 07/23/18 08:59 06/24/18 08:17 Azithromycin 500 mg/Dextrose 275 ml @ 275 mls/hr Q24HRS IV 06/24/18 01:00 06/30/18 01:59 06/24/18 01:17 Bisacodyl (Dulcolax) 5 mg DAILYPRN PRN ORAL Constipation 06/23/18 18:45 07/23/18 18:44 Docusate Sodium (Colace) 250 mg DAILY ORAL 06/24/18 09:00 07/24/18 08:59 06/24/18 08:16 Famotidine (Pepcid) 20 mg DAILY ORAL 06/23/18 09:00 07/22/18 08:59 06/24/18 08:15 Gabapentin (Neurontin) 100 mg EVERY 8 HOURS ORAL 06/22/18 14:00 07/21/18 21:59 06/24/18 13:08 Hydralazine HCl (Apresoline) 25 mg Q6H PRN ORAL BP above 160/95 06/22/18 18:00 07/22/18 17:59 Lactobacillus Acidophilus (Culturelle) 1 tab THREE TIMES A DAY ORAL 06/24/18 09:00 07/24/18 08:59 06/24/18 13:08 Magnesium Hydroxide (Mom) 30 ml HSPRN PRN ORAL Constipation 06/23/18 21:00 07/23/18 20:59 Methylprednisolone Sodium Succinate (Solu-MEDROL) 40 mg EVERY 12 HOURS IVP 06/23/18 09:00 07/23/18 08:59 06/24/18 08:17 Zolpidem Tartrate (Ambien) 5 mg HSPRN PRN ORAL Insomnia 06/22/18 20:00 06/28/18 19:59 Randall Solomon MD Jun 24, 2018 14:05
[2018-06-24] MEDS: Vancomycin 750mg/NS 250ml IVPB SCH (15:21)
[2018-06-24 16:17] VITALS: BP 138/90
[2018-06-24 20:00] VITALS: BP 134/79
[2018-06-25] VITALS: BP 132/88
[2018-06-25] MEDS: Azithromycin 500 MG in D5W 275 ML IV SCH (01:05)
[2018-06-25] MEDS: Albuterol/Ipratropium 3ml neb HHN SCH ×3 (01:23→13:03)
[2018-06-25] MEDS: Vancomycin 750mg/NS 250ml IVPB SCH ×2 (03:07→15:36)
[2018-06-25 04:00] VITALS: BP 148/81
--- NOTE | 2018-06-25 04:30 | Progress Note ---
DATE: 06/24/2018 INTERNAL MEDICINE PROGRESS NOTE SUBJECTIVE: Has congestion and shortness of breath. She remains on IV antibiotics because of positive blood cultures. OBJECTIVE: VITAL SIGNS: Blood pressure 136/85, pulse 78, and respirations 18. NECK: Supple. LUNGS: Few rhonchi. No wheezes. CARDIAC: Regular rhythm and rate. Normal S1 and S2 with no murmur. ABDOMEN: Soft. EXTREMITIES: No edema. LABORATORY DATA: Echocardiogram with no valvular pathology of note. IMPRESSION: 1. Staphylococcus aureus bacteremia. 2. Chronic obstructive pulmonary disease exacerbation. 3. History of nicotine addiction. 4. Hypertension. PLAN: 1. Await final cultures. 2. Continue steroid taper. 3. Long-term IV antimicrobials. 4. Respiratory hygiene. 5. Titrate antihypertensives based on clinical parameters. Rayray Pat M.D. DR: NOELLE JOB#: [id number] CC:
[2018-06-25 08:00] VITALS: BP 132/87
[2018-06-25] MEDS: Docusate 250mg cap ORAL SCH (08:36)
[2018-06-25] MEDS: Lactobacillus-GG tablet ORAL SCH ×3 (08:36→17:10)
--- NOTE | 2018-06-25 08:48 | Pulmonology Progress Note ---
Assessment/Plan Assessment/Plan IMPRESSION: 1. Exacerbation of COPD 2. Ex-smoker. 3. Marijuana use. 4. Bacteremia DISCUSSION: Respiratory status stable. 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 No further recommendations at this point and time. Subjective Interval Events: Breathing comfortably Constitutional: Reports: no symptoms HEENT: Repors: no symptoms Respiratory: Reports: no symptoms Cardiovascular: Reports: no symptoms Gastrointestinal/Abdominal: Reports: no symptoms Genitourinary: Reports: no symptoms Allergies: Coded Allergies: No Known Allergies (Unverified , 08/18/16) Objective Last 24 Hour Vital Signs Date Time Temp Pulse Resp B/P (MAP) Pulse Ox O2 Delivery O2 Flow Rate FiO2 06/25/18 08:37 70 132/87 06/25/18 08:00 97.9 70 20 132/87 (102) 98 06/25/18 07:58 Nasal Cannula 2.0 28 06/25/18 07:58 97 Nasal Cannula 2.0 28 06/25/18 07:58 79 18 97 Nasal Cannula 2.0 28 06/25/18 04:00 97.9 72 18 148/81 (103) 98 06/25/18 01:40 72 16 98 Nasal Cannula 2.0 28 06/25/18 01:26 78 16 97 Nasal Cannula 2.0 28 06/25/18 00:00 98.9 74 18 132/88 (103) 100 06/24/18 21:00 Nasal Cannula 2.0 06/24/18 20:21 70 18 98 Nasal Cannula 2.0 28 06/24/18 20:10 Nasal Cannula 2.0 28 06/24/18 20:10 98 Nasal Cannula 2.0 28 06/24/18 20:05 74 18 98 Nasal Cannula 2.0 28 06/24/18 20:00 97.8 67 18 134/79 (97) 98 06/24/18 16:17 98.1 81 19 138/90 (106) 97 06/24/18 13:05 85 16 100 Nasal Cannula 2.0 28 06/24/18 12:55 79 14 96 Nasal Cannula 2.0 28 06/24/18 12:00 97.7 72 21 138/87 (104) 99 Intake and Output 06/24/18 06/25/18 19:00 07:00 Intake Total 1970 ml 525.000 ml Balance 1970 ml 525.000 ml Intake Oral 1720 ml IV Total 250 ml 525.000 ml # Voids 2 General Appearance: no acute distress HEENT: normocephalic Cardiovascular: normal peripheral pulses, normal rate Abdomen: normal bowel sounds Microbiology Date/Time Source Procedure Growth Status 06/23/18 11:25 Blood Blood Culture - Preliminary NO GROWTH AFTER 24 HOURS Resulted 06/23/18 11:15 Blood Blood Culture - Preliminary NO GROWTH AFTER 24 HOURS Resulted Current Medications Medications (Trade) Dose Ordered Sig/Magali Route PRN Reason Start Time Stop Time Status Last Admin Dose Admin Acetaminophen (Tylenol) 650 mg Q6H PRN ORAL Mild Pain/Temp > 100.5 06/22/18 14:00 07/21/18 13:59 Albuterol/ Ipratropium (Albuterol/ Ipratropium) 3 ml Q6HRT HHN 06/22/18 14:00 06/26/18 13:59 06/25/18 07:55 Amlodipine Besylate (Norvasc) 10 mg DAILY ORAL 06/23/18 09:00 07/23/18 08:59 06/25/18 08:37 Azithromycin 500 mg/Dextrose 275 ml @ 275 mls/hr Q24HRS IV 06/24/18 01:00 06/30/18 01:59 06/25/18 01:05 Bisacodyl (Dulcolax) 5 mg DAILYPRN PRN ORAL Constipation 06/23/18 18:45 07/23/18 18:44 06/24/18 15:21 Docusate Sodium (Colace) 250 mg DAILY ORAL 06/24/18 09:00 07/24/18 08:59 06/25/18 08:36 Famotidine (Pepcid) 20 mg DAILY ORAL 06/23/18 09:00 07/22/18 08:59 06/25/18 08:36 Gabapentin (Neurontin) 100 mg EVERY 8 HOURS ORAL 06/22/18 14:00 07/21/18 21:59 06/25/18 05:22 Hydralazine HCl (Apresoline) 25 mg Q6H PRN ORAL BP above 160/95 06/22/18 18:00 07/22/18 17:59 Lactobacillus Acidophilus (Culturelle) 1 tab THREE TIMES A DAY ORAL 06/24/18 09:00 07/24/18 08:59 06/25/18 08:36 Magnesium Hydroxide (Mom) 30 ml HSPRN PRN ORAL Constipation 06/23/18 21:00 07/23/18 20:59 Methylprednisolone Sodium Succinate (Solu-MEDROL) 40 mg DAILY IVP 06/25/18 09:00 07/25/18 08:59 06/25/18 08:37 Vancomycin HCl (Vanco rx to dose) 1 ea DAILY PRN MISC Per rx protocol 06/24/18 14:15 07/24/18 14:14 Vancomycin/Sodium Chloride 250 ml @ 166.667 mls/hr Q12HR@0300,1500 IVPB 06/24/18 15:00 06/29/18 14:59 06/25/18 03:07 Zolpidem Tartrate (Ambien) 5 mg HSPRN PRN ORAL Insomnia 06/22/18 20:00 06/28/18 19:59 Calvin Ignacio MD Jun 25, 2018 08:48
[2018-06-25] MEDS ORDERED: Solu-MEDROL 40mg Inj IVP SCH (09:00)
[2018-06-25 12:00] VITALS: BP 141/92
[2018-06-25 16:00] VITALS: BP 132/82
[2018-06-25] MEDS ORDERED: Pneumococcal Vaccine 25mcg/0.5ml IM ONE (16:00)
[2018-06-25] MEDS ORDERED: BACTRIM-DS1 EA ORAL (17:47)
[2018-06-25] MEDS ORDERED: VENTOLIN HFA18 GM INH (17:49)
[2018-06-25] MEDS ORDERED: PREDNISONE2.5 MG ORAL (17:50)
[2018-06-25] MEDS ORDERED: BACTRIM DS TAB1 EAC1 ORAL (17:51)
--- NOTE | 2018-06-27 07:40 | Discharge Summary ---
Discharge Summary Discharge Summary _ DATE OF ADMISSION: 06/21/2018 DATE OF DISCHARGE: 06/25/2018 DISCHARGED BY: REASON FOR ADMISSION: 48 years old female with past medical history of hypertension, COPD/asthma, brought to emergency department with respiratory distress. she was found to be tachycardic, tachypneic and hypoxic. She required placement on 10 L of oxygen via simple mask to reach appropriate oxygenation. Laboratory workup revealed stable hemoglobin AND hematocrit. Troponin negative , EKG revealed sinus tachycardia no acute ischemic changes. Unremarkable electrolytes and renal parameters. Urinalysis reveals no evidence of UTI. Chest x-ray revealed no acute cardiopulmonary pathology. Patient slightly improved in the emergency department with nebulizing treatment with bronchodilator and oxygen supplementation , however she remained tachypneic , tachycardic ,and required hospitalization. Patient admitted with diagnosis of COPD exacerbation for further management CONSULTANTS: pulmonary Dr. Ignacio ID specialist Dr. Black [facility] COURSE: Patient admitted. Food And Beverage Service Manager closely followed. Supplemental oxygen provided to keep pulse oximetry above 90%. Pulmonary toilet provided with nebulizing therapy around the clock and as needed. Patient was started on intravenous steroids with gradual tapering down. Patient was started on empiric antibiotic. Blood culture initially revealed Staph aureus . ID specialist followed. Repeated blood cultures were negative. Influenza screen test was negative. Antitussive provided as needed Volume status was closely monitored. Pro BNP 346. Blood pressure was managed with calcium channel joe , and hydralazine was on board on as needed basis. BP stabilized. GI prophylaxis provided. As patient clinically improved, she was able to be weaned from simple mask to ioygen via nasal cannula and eventually off oxygen. Pulse oximetry prior to discharge was stable on room air. Patient counseled to continue abstinence from smoking and limit marijuana use. Patient was given Pneumococcal vaccine prior to discharge. Repeated blood culture were negative. Patient to complete treatment with oral antibiotics at home. Patient switched to oral steroids to complete the course at home. Patient was stable for discharge. FINAL DIAGNOSES: Staph aureus bacteremia , probable sepsis COPD with exacerbation Acute bronchitis Acute bronchospasm Hypoxia Hypertensive heart disease with labile blood pressure History of smoking Marijuana use DISCHARGE MEDICATIONS: See Medication Reconciliation list. DISCHARGE INSTRUCTIONS: Patient was discharged home Follow up with primary care provider in one week. I have been assigned to dictate discharge summary for this account. I was not involved in the patient's management. Jane Nixon NP Jun 27, 2018 07:40
--- NOTE | 2018-06-28 08:28 | Cardiology Report ---
APPROVED REPORT EXAM: Two-dimensional and M-mode echocardiogram with Doppler and color Doppler. INDICATION Endocarditis M-Mode DIMENSIONS IVSd1.6 (0.7-1.1cm)Left Atrium (MM)2.3 (1.6-4.0cm) LVDd3.5 (3.5-5.6cm)Aortic Root3.2 (2.0-3.7cm) PWd1.4 (0.7-1.1cm)Aortic Cusp Exc.1.8 (1.5-2.0cm) LVDs2.1 (2.5-4.0cm) PWs1.6 cm Normal left ventricular chamber size, systolic function and wall motion. Left ventricular ejection fraction estimated to be 55 %. Mild left ventricular hypertrophy. No evidence of pericardial effusion. All other cardiac chamber sizes are within normal limits. Focal aortic valve sclerosis with adequate cusp excursion. Mildly thickened mitral valve leaflets with normal excursion. Mild mitral annulus and aortic root calcification. Normal pulmonic valve structure. Normal tricuspid valve structure. IVC is normal in size with physiological collapse. A color flow and spectral Doppler study was performed and revealed: No aortic insufficiency. Mild to moderate mitral regurgitation. Mitral diastolic velocities suggest mild left ventricular diastolic dysfunction (Grade I). Mild tricuspid regurgitation. Tricuspid systolic velocities suggests peak right ventricular systolic pressure of 40 mmHg, consistent with mild pulmonary hypertension. Trace pulmonic regurgitation present.
== END 2018-06-25 18:45 | disposition home or self-care (01) | DRG 720 ==
LOC: EDBD 13:09 → EMR 13:40 → 2E 14:30 → EDBEDREQ 14:56 → EDBEDREQSVC 15:31 → EDBEDREQ 18:51 → 4E 06-22 13:18
DX: A41.01 Sepsis due to Methicillin susceptible Staphylococcus aureus (principal); J44.0 Chronic obstructive pulmonary disease with (acute) lower respiratory infection; I11.9 Hypertensive heart disease without heart failure; J44.1 Chronic obstructive pulmonary disease with (acute) exacerbation; J20.9 Acute bronchitis, unspecified; R09.02 Hypoxemia; Z87.891 Personal history of nicotine dependence; F12.90 Cannabis use, unspecified, uncomplicated; E05.90 Thyrotoxicosis, unspecified without thyrotoxic crisis or storm; Z23 Encounter for immunization
CPT/HCPCS: 36415; 71045; 80053; 81003; 83735; 83880; 84439; 84443; 84480; 84484; 85007; 85025; 86710; 87040; 87081; 87181; 90732; 93005; 93306; 94640; 94664; 94760; 96361; 96374; 99291; J7620